=== PATIENT | female | born 1940 | race Caucasian/White ===

== ENCOUNTER → 2018-06-23 | Outpatient (CLI) | payer MEDICARE ==
[~2018-06-23] MED LIST: AMLO10 PO; Atarax10 MG PO; LORA10 PO; LOSA25 PO; VERA240ER PO
== END | disposition home or self-care (01) ==
LOC: LAB 08:40 → EDSTATUS 06-09 10:25 → LAB FUT 06-09 10:25
DX: K21.9 Gastro-esophageal reflux disease without esophagitis (principal); R11.0 Nausea
CPT/HCPCS: 87338

== ENCOUNTER 2021-01-10 15:13 | Emergency (ER) | payer MEDICARE ==
[~2021-01-10] VITALS: Ht 167.6 cm; Wt 56.7 kg
[2021-01-10] MEDS ORDERED: HYDCHL25 PO (15:55)
[2021-01-10] MEDS ORDERED: LOSA50 PO (15:56)
[2021-01-10] MEDS ORDERED: K-Dur10 MEQ PO (15:57)
== END 2021-01-10 16:44 | disposition home or self-care (01) ==
LOC: ER 15:13
DX: R04.0 Epistaxis (principal); I10 Essential (primary) hypertension; Z79.899 Other long term (current) drug therapy
CPT/HCPCS: 99283; A9270